=== PATIENT | male | born 1970 | race Caucasian/White ===

== ENCOUNTER 2019-10-13 18:36 | Emergency (ER) | payer OTHER, SELFPAY ==
[2019-10-13 18:52] VITALS: BP 149/93; PULSE 94; RESP 16; TEMP 37.7; O2SAT 100
--- NOTE | 2019-10-13 19:08 | ED.EXTPRO ---
HPI - Extremity Problem General Chief complaint: Extremity Problem,Nontraumatic Stated complaint: left foot pain Time Seen by Provider: 10/13/19 19:08 Source: patient and RN notes reviewed Mode of arrival: ambulatory Limitations: no limitations History of Present Illness HPI Narrative: 49-year-old male presents with concern for left pedal foot pain. Reports for 2 months he would have pain near the heel and arch of his foot when he woke up in the morning, after walking the pain would resolve. Reports when he woke up this morning he had pain, however it did not resolve as it usually does. He reports he took ibuprofen with no relief. He denies any injury, trauma, warmth, redness, fever. Reports pain worsens with hyperflexion, pain does does not worsen with extension. MD Complaint: extremity pain Related Data Allergies Allergy/AdvReac Type Severity Reaction Status Date / Time No Known Allergies Allergy Unknown Unverified 10/13/19 18:44 Review of Systems Review of Systems: Narrative: CONSTITUTIONAL: Denies malaise, chills, sweats, or fever. CARDIOVASCULAR: Denies chest pain, palpitations, or edema. RESPIRATORY: Denies dyspnea. SKIN: Denies bruising, reddening, swelling MUSCULOSKELETAL: Reports left pedal foot pain NEUROLOGIC: Denies numbness, weakness All systems reviewed & are unremarkable except as noted in HPI and below PMFSH Comments At time of signature, agree with nursing past medical, surgical, social and family history. There is no relevant family history pertinent to the presenting complaint Exam Narrative: Exam Narrative: GENERAL: Well-appearing, well-nourished, and in no acute distress. HEAD: Normocephalic, atraumatic. EYES: PERRLA, conjunctivae clear NECK: Supple. CHEST: Speaks in full sentences. No respiratory distress. HEART: Regular rate and rhythm. Normal and equal peripheral pulses. EXTREMITIES: Left foot, digits have normal strength and sensation, no edema, normal range of motion. 5/5 strength with foot flexion and extension. Normal sensation with sensitivity to light touch and pain. No open wounds, no skin tenting, no devitalized tissue or atrophy, no trophic changes, no ecchymosis, no obvious deformity, alignment normal, no point tenderness, nearby joints and structures intact. Distal pulses palpable and equal bilaterally, skin warm, dry, pink. Capillary refill less than 3 seconds. SKIN: Warm, dry, no rash. NEURO: Alert and oriented x3. PSYCH: Normal mood and affect Course Course Emergency Course: Patient is aware of diagnosis, understands and agrees to treatment plan. Anticipatory guidance given. Patient agrees to follow-up as directed and is aware of reasons to seek care at the emergency department. Portions of this record may have been created with voice recognition software Vital Signs Vital signs: Vital Signs Temperature 99.8 F H 10/13/19 18:52 Pulse Rate 94 10/13/19 18:52 Respiratory Rate 16 10/13/19 18:52 Blood Pressure 149/93 H 10/13/19 18:52 Pulse Oximetry 100 10/13/19 18:52 Temperature 99.8 F H 10/13/19 18:52 Pulse Rate 94 10/13/19 18:52 Respiratory Rate 16 10/13/19 18:52 Blood Pressure 149/93 H 10/13/19 18:52 Pulse Oximetry 100 10/13/19 18:52 Reviewed. Pt has been instructed to follow up with his primary care provider within the next week regarding his elevated blood pressure today. MDM - Extremity (Nontraumatic) MDM Narrative Medical decision making narrative: Patients pain is consistent with musculoskeletal etiology. No signs of neurological or vascular compromise on exam. Compartments and tissues are soft without signs of compartment syndrome. Pain is felt appropriate for further evaluation on an outpatient basis. Differential Diagnosis Differential diagnosis: Likely other (Foot sprain, plantar fasciitis, bone spur, fracture, cellulitis) Critical Care Time Critical Care Time Critical Care Time: No Discharge Plan Discharge Clinical Impression: Plan
== END 2019-10-13 19:17 | disposition home or self-care (01) ==
PROVIDERS: Emergency Provider Nurse Practitioner
DX: M72.2 Plantar fascial fibromatosis (principal)
CPT/HCPCS: 99213; G0463

== ENCOUNTER 2020-01-21 09:59 | Emergency (ER) | payer OTHER, SELFPAY ==
[2020-01-21 10:06] VITALS: BP 168/86; PULSE 87; RESP 16; TEMP 36.4; O2SAT 100
--- NOTE | 2020-01-21 10:32 | ED.BACK ---
HPI - Back Pain/Injury General Chief Complaint: Back Pain/Injury Stated Complaint: lower back pain Source: patient and RN notes reviewed Limitations: no limitations History of Present Illness HPI Narrative: The patient, who is a history of lumbar DJD, presents with recurrent low back pain. 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 Symptoms are mild, worse with motion, began while leaning over. No fever, bowel?bladder symptoms, hematuria/frequency/dysuria, numbness/weakness, radiating pain-like prior episodes. Related Data Home Medications Medication Instructions Recorded Confirmed sumatriptan succinate 25 mg PO . DIRECTED 01/21/20 01/21/20 Allergies Allergy/AdvReac Type Severity Reaction Status Date / Time No Known Allergies Allergy Unknown Verified 01/21/20 10:15 Review of Systems Review of Systems: Narrative: The patient has been informed that they may have pre-hypertension or Hypertension based on a BP reading in the department. I recommend that the patient call the primary care provider listed on their discharge instructions or a physician of their choice this week to arrange follow up for further evaluation of possible pre-hypertension or Hypertension General/Constitutional: No weight loss,fever Eyes: N0: Redness,discharge Ears/Nose/Throat: No: Epistaxis,ear discharge Respiratory: Denies: Hemoptysis Gastrointestinal: No Vomiting, Bleeding-rectal Skin: No Lumps, eruption Neurologic: No Focal Weakness,Sz Hematologic: Denies: Petechiae/Purpura Psychiatric: No: Suicida ideationl All Other Systems: Reviewed and Negative PMFSH Comments At time of signature, agree with nursing past medical, surgical, social and family history. There is no relevant family history pertinent to the presenting complaint Exam Narrative: Exam Narrative: General Appearance: Well appearing, Well nourished EYE: PERRLA, Conjunctiva clear Ears: External ear normal Nose: Normal nose Mouth/Throat: Normal appearing, Normal lips Neck: Supple Respiratory: Airway patent Abdomen: Soft Musculoskeletal: Normal strength (no footdrop, 5/5 : EH L-FHL, gastroc-AT, no saddle weakness) Spine/Back: Paraspinal muscle tender (with mild decreased range of motion; left posterior superior iliac crest) Skin: Normal color Neurological: A&O x3, CN II-XII intact, Normal reflexes (symmetric, 2+ KJ, trace AJ) Psychiatric: Normal mood Course Vital Signs Vital signs: Vital Signs Temperature 97.5 F L 01/21/20 10:06 Pulse Rate 87 01/21/20 10:06 Respiratory Rate 16 01/21/20 10:06 Blood Pressure 168/86 H 01/21/20 10:06 Pulse Oximetry 100 01/21/20 10:06 Temperature 97.5 F L 01/21/20 10:06 Pulse Rate 87 01/21/20 10:06 Respiratory Rate 16 01/21/20 10:06 Blood Pressure 168/86 H 01/21/20 10:06 Pulse Oximetry 100 01/21/20 10:06 Discharge Plan Discharge Clinical Impression: History of degenerative joint disease Strain of lumbar region Qualifiers: Encounter type: initial encounter Qualified Code(s): S39.012A - Strain of muscle, fascia and tendon of lower back, initial encounter Patient Disposition: Home, Self-Care Condition: Stable Instructions: Low Back Strain (ED) Additional Instructions: Do not take tramadol and Flexeril at same time Prescriptions: New prednisone 20 mg tablet 60 mg PO DAILY Qty: 12 RF: 0 acetaminophen-codeine 300-30 mg tablet 1 tablet PO HS PRN (Reason: pain) Qty: 10 RF: 0 tramadol 50 mg tablet 50 mg PO TID PRN (Reason: pain) Qty: 15 RF: 1 cyclobenzaprine 10 mg tablet 10 mg PO HS PRN (Reason: muscle spasm) Qty: 14 RF: 1 No Action sumatriptan succinate 25 mg tablet 25 mg PO . DIRECTED RF: 0 Follow-up/Referrals: UNKNOWN,DOCTOR [Primary Care Provider] -
== END 2020-01-21 10:40 | disposition home or self-care (01) ==
PROVIDERS: Emergency Provider Emergency Medicine
DX: S39.012A Strain of muscle, fascia and tendon of lower back, initial encounter (principal); X58.XXXA Exposure to other specified factors, initial encounter; M47.816 Spondylosis without myelopathy or radiculopathy, lumbar region
CPT/HCPCS: 99213; G0463